=== PATIENT | male | born 1990 | race African-American/Black ===

== ENCOUNTER 2017-07-20 09:20 | Emergency (ER) | payer OTHER ==
[~2017-07-20] VITALS: Ht 175.3 cm; Wt 78.5 kg
[2017-07-20] MEDS ORDERED: PERCOCET 5/31 TABLET PO (11:47)
[2017-07-20] MEDS ORDERED: KEFLEX500 MG PO (11:47)
[2017-07-20 12:12] VITALS: BP 120/68
== END 2017-07-20 12:17 | disposition home or self-care (01) ==
LOC: EME 09:20
DX: S61.210A Laceration without foreign body of right index finger without damage to nail, initial encounter (principal); S61.312A Laceration without foreign body of right middle finger with damage to nail, initial encounter; S61.314A Laceration without foreign body of right ring finger with damage to nail, initial encounter; S62.632A Displaced fracture of distal phalanx of right middle finger, initial encounter for closed fracture; W23.0XXA Caught, crushed, jammed, or pinched between moving objects, initial encounter; Z23 Encounter for immunization
CPT/HCPCS: 73130; 99281; 99284

== ENCOUNTER 2017-08-01 14:23 | Emergency (ER) | payer OTHER ==
[~2017-08-01] VITALS: Ht 172.7 cm; Wt 80.1 kg
[~2017-08-01 14:23] MED LIST: KEFLEX500 MG PO; PERCOCET 5/31 TABLET PO
[2017-08-01 15:03] VITALS: BP 133/79
== END 2017-08-01 16:46 | disposition home or self-care (01) ==
LOC: EME 14:23
PROC: 3E0T3CZ (ICD-10-PCS; principal; 2017-08-01)
DX: S61.212D Laceration without foreign body of right middle finger without damage to nail, subsequent encounter (principal); S61.214D Laceration without foreign body of right ring finger without damage to nail, subsequent encounter; W45.8XXD Other foreign body or object entering through skin, subsequent encounter; Y99.0 Civilian activity done for income or pay; Z48.02 Encounter for removal of sutures
CPT/HCPCS: 99281; 99284; S0020